=== PATIENT | female | born 1965 | race Caucasian/White ===

== ENCOUNTER 2021-11-26 12:10 | Emergency (ER) | payer MEDICAID, SELFPAY ==
[2021-11-26 12:13] VITALS: BP 173/93; PULSE 69; RESP 18; TEMP 36.6; O2SAT 97; BMI 44.8
--- NOTE | 2021-11-26 12:19 | RAD_ITS ---
HISTORY: INJURY. TECHNIQUE: XR Shoulder Min 2 Views. COMPARISON: None. FINDINGS: BONES : Comminuted fracture of the right humeral neck with mild lateral displacement of the greater tuberosity fracture fragment. JOINTS: No glenohumeral dislocation or acromioclavicular subluxation. Mild degenerative change. SOFT TISSUES: Visualized right upper lung clear. RAD/Shoulder min 2 Views IMPRESSION: Comminuted fracture of the right humeral neck with mild lateral displacement of the greater tuberosity. Electronically Signed: Kenzie Sandoval MD at 12:55 EDT ,
--- NOTE | 2021-11-26 13:35 | EX.ED.UPPERE ---
HPI History of Present Illness HPI Narrative: Patient presents with right shoulder pain that began after a fall today. Patient states she tripped and fell. Patient states she landed on her right shoulder. Patient states she felt a crack. Patient describes her pain as dull and aching. Patient states it is worse with movement. Patient states it is better with rest. Patient denies any paresthesias or weakness. Patient denies any head injury or loss of consciousness. Patient denies any other injuries. Chief Complaint: Upper Extremity Injury Informant: patient Occured/Mechanism Mechanism/Context: Yes fall Onset/Context/Timing Onset: Today Context: Sudden Onset Timing: Continuous Quality of Pain: Dull and Aching Location: Right shoulder Worsened by: Movement Relieved by: Rest Associated Symptoms Associated Symptoms: Negative for Parasthesia, Weakness or Loss of Funtion [facility] Medical History Hypertension Hypothyroid Home Medications oxycodone-acetaminophen 5 mg-325 mg tablet 1 tab PO Q6H PRN PRN Pain 3 days #12 TABLETS 11/26/21 [Rx Last Taken Unknown] Allergy/AdvReac Type Severity Reaction Status Date / Time Sulfa (Sulfonamide Allergy Rash Verified 11/26/21 12:14 Antibiotics) Surgical History History of tonsillectomy and adenoidectomy Social History Smoking Status: Never smoker ROS ROS ED Constitutional Constitutional ED: Denies chills or fever(s) Eyes Eyes: Denies blurry vision or change in vision ENT ENT ED: Denies rhinorrhea or sore throat Cardiovascular Cardiovascular: Denies chest pain or palpitations Respiratory/Chest Respiratory/Chest: Denies cough or dyspnea Gastrointestinal Gastrointestinal: Denies nausea or vomiting Genitourinary Genitourinary ED: Denies dysuria or hematuria Musculoskeletal Musculoskeletal: Denies back pain or neck pain Integumentary Denies abscess or rash Neurologic Neurologic: Denies headache(s) or weakness Allergic/Immunologic Allergic/Immunologic ED: Denies mouth swelling or urticaria EXAM Physical Exam Const Vital Signs: 11/26/21 12:13 Temperature 97.9 F Temperature Source Oral Pulse Rate 69 Respiratory Rate 18 Blood Pressure 173/93 H Blood Pressure Mean 119 Pulse Ox 97 Oxygen Delivery Method Room Air Positive well nourished, well developed and obese General Appearance ED: well developed and NAD Nutritional Appearance: obese HEENT Reports moist mucous membranes Neck full ROM and supple Extremity Extremity Narrative: There is tenderness over the right shoulder area. There is no bony crepitance or step-off. There is no obvious deformity noted. Range of motion was limited in all motions of the right shoulder secondary to pain. Radial pulses are equal bilaterally. Sensation was intact to light touch in the radial, median, ulnar, and axillary areas. Strength is 5/5 in the radial, median, and ulnar areas. Neuro oriented x3, CN's II-XII intact bilaterally, moves all extremities, no focal motor deficits and no sensory deficits noted Sensorium / Orientation: alert Motor Exam: strength 5/5 throughout Psych mental status grossly normal MDM MDM MDM Narrative Medical decision making narrative: X-rays of the right shoulder were obtained. There are 3 views. On my interpretation, there is a comminuted fracture of the right proximal humerus. There is no dislocation. There is minimal displacement. Radiologist also interpreted the x-rays and agrees. Patient was given a sling and swath. Patient was given a dose of Percocet here. Patient was given a prescription for a short course of Percocet. Patient was instructed to use ice to the area. Patient was instructed to follow-up with her primary care physician in 5 to 7 days. Patient was also instructed to follow-up with her orthopedist in 3 to 5 days. Patient understood and was agreeable with the plan. All questions were answered. Radiography Diagnostic Testing: Clinical Impression(s) from Imaging Studies Shoulder X-Ray 11/26/21 12:19 IMPRESSION: Comminuted fracture of the right humeral neck with mild lateral displacement of the greater tuberosity. Electronically Signed: Kenzie Sandoval MD at 12:55 EDT , Discharge Plan Triage Chief Complaint: Upper Extremity Injury ED Provider: Juancarlos Monzon Dx/Rx/DC Orders Clinical Impression: Closed fracture of proximal end of right humerus, Fall Instructions: ED Fracture, Shoulder Prescriptions: New oxycodone-acetaminophen [oxycodone-acetaminophen] 5-325 mg tablet 1 tab PO Q6H PRN PRN (Reason: Pain) 3 Days Qty: 12 0RF Primary Care Provider: TEO CASTRO Referrals: TEO CASTRO [Other] - 5-7 Days Activity Restrictions/Additional Instructions: Wear the sling and swath at all times except while bathing. You have a fracture in your proximal humerus near your shoulder. Follow-up with your orthopedic surgeon in 3 to 5 days. Disposition Disposition: Home, Self Care
[2021-11-26] MEDS: oxyCODONE 5 MG Tablet PO (13:55)
== END 2021-11-26 14:16 | disposition home or self-care (01) ==
PROVIDERS: Emergency Provider Emergency Medicine; Visit Provider Emergency Medicine
DX: S42.351A Displaced comminuted fracture of shaft of humerus, right arm, initial encounter for closed fracture (principal); I10 Essential (primary) hypertension; W18.09XA Striking against other object with subsequent fall, initial encounter
CPT/HCPCS: 73030; 99283